=== PATIENT | male | born 1985 | race Two or more races ===

== ENCOUNTER 2021-03-19 22:41 | Emergency (ER) | payer SELFPAY ==
[~2021-03-19] VITALS: Ht 172.7 cm; Wt 71.2 kg
[2021-03-20 00:10] LABS: CLARITY URINE CLEAR (CLEAR); COLOR URINE YELLOW (YELLOW); KETONES URINE NEGATIVE (NEGATIVE); LEUKOCYTE ESTERASE URINE NEGATIVE (NEGATIVE); NITRITE URINE NEGATIVE (NEGATIVE); OCCULT BLOOD URINE NEGATIVE (NEGATIVE); PH URINE 6.5 (4.5-8.0); PROTEIN URINE NEGATIVE (NEGATIVE); SPECIFIC GRAVITY URINE 1.021 (1.005-1.030)
[2021-03-20] MEDS ORDERED: IBUPROFEN 800MG TABLET PO ONE (00:15)
[2021-03-20] MEDS ORDERED: IBUP-2029 MT (01:44)
[2021-03-20 01:59] VITALS: BP 110/72
== END 2021-03-20 02:10 | disposition home or self-care (01) ==
LOC: ER 23:36
DX: N43.3 Hydrocele, unspecified (principal); Z88.2 Allergy status to sulfonamides
CPT/HCPCS: 76870; 81003; 93976; 99284